=== PATIENT | male | born 1995 | race African-American/Black ===

== ENCOUNTER 2024-10-20 10:47 | Emergency (ER) | payer SELFPAY ==
--- NOTE | ~2024-10-20 | XR_ITS ---
EXAM/PROCEDURE: XR chest 2V - 10/20/2024 11:00 CDT HISTORY: 29 years old Male with cough,COARSE,WHEEZING,SOB TECHNIQUE: Two view(s) of the chest. COMPARISON: None available. FINDINGS: LUNGS/ PLEURA: No focal consolidation. Mild perihilar bronchial wall thickening. HEART/ MEDIASTINUM: Heart appears normal in size. BONES: No acute osseous abnormality. OTHER: Visualized upper abdomen is unremarkable. IMPRESSION: No focal consolidation. Mild perihilar bronchial wall thickening, findings suggestive of respiratory bronchiolitis. Reviewed, dictated and finalized at location A. IMPRESSION: No focal consolidation. Mild perihilar bronchial wall thickening, findings sugg estive of respiratory bronchiolitis.
--- OUTSIDE RECORDS SUMMARY | 2024-10-20 10:53 | XMS_ITS | Clinical Summary ---
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 Name Role Phone Provider, None Primary Care Provider Unavailabl e Allergies Active Allergy Reactions Criticality Noted Date Comments Ibuprofen Other (see Comments) 04/13/2022 Medications No known medications Social History Tobacco Use Types Packs/Day Years Used Date Smoking Tobacco: Never Smokeless Tobacco: Never Alcohol Use Standard Drinks/Week Comments Never 0 (1 standard drink = 0.6 oz pur e alcohol) Sex and Gender Information Value Date Recorded Sex Assigned at Not on file Legal Sex Male 10:32 PM CDT Gender Identity Not on file Sexual Orientation Not on file Last Filed Vital Signs Vital Sign Reading Time Taken Comments Blood Pressure 140/83 04/13/2022 10:41 PM CDT Pulse 79 04/13/2022 10:41 PM CDT Temperature 36.3 C (97.4 F) 04/13/2022 10:41 PM CDT Respiratory Rate 15 04/13/2022 10:41 PM CDT Oxygen Saturation 99% 04/13/2022 10:41 PM CDT Inhaled Oxygen Concentration - - Weight 99.8 kg (220 lb) 04/13/2022 10:41 PM CDT Height 177.8 cm (5' 10 ) 04/13/2022 10:41 PM CDT Body Mass Index 31.57 04/13/2022 10:41 PM CDT Plan of Treatment Health Maintenance Due Date Last Done Comments Hepatitis C Virus (HCV) Screening 1996 TdaP Immunization 1996 Hepatitis B Immunization (1 of 3 - 19+ 3-dose series) 01/08/2015 Influenza Immunization (#1) 2024 SARS-COV-2 Immunization ( season) 2024 03/24/2021 Respiratory Syncytial Virus (RSV) Immunization (Adult) (1 - 1-dose 75+ series) 01/08/2071 Meningococcal Immunization (ACWY) Aged Out No longer eligible based on patient's age to complete this topic Pneumococcal Immunization Combined Aged Out No longer eligible based on patient's age to complete this topic Rotavirus Immunization Aged Out No lo nger eligible based on patient's age to complete this topic Insurance MEDICAID [place] Care Teams Stem Roller Operator Relationship Specialty Start Date End Date Provider, None [place] PCP - General 04/13/22
[2024-10-20 10:55] VITALS: BP 161/98; PULSE 60; RESP 20; TEMP 36.9; O2SAT 97
[2024-10-20 11:05] VITALS: BP 149/92
--- NOTE | 2024-10-20 11:29 | ED.GENADULT ---
HPI - General Adult General Chief complaint: Upper Respiratory Infection Stated complaint: Cough/Chest Congestion Source: patient Mode of arrival: ambulatory Limitations: no limitations History of Present Illness HPI narrative: Pt presents for evaluation of respiratory symptoms for the past week. Symptoms include cough, shortness of breath, and wheezing. He also has experienced a sore throat and diarrhea. Denies otalgia, nausea and vomiting. He was exposed to influenza about a month ago. He has tried taking Mucinex and Delsym for his symptoms. He has a history of pneumonia and states his current symptoms are similar to those he experienced with pneumonia. He does vape. Related Data Home Medications ?Medication ?Instructions ?Recorded ?Confirmed ?Last Taken ?Type No Home Medications 10/20/24 10/20/24 Unknown History Allergies Allergy/AdvReac Type Severity Reaction Status Date / Time ibuprofen (From Motrin) Allergy Intermediate Hives Verified 10/20/24 11:10 Review of Systems Review of Systems: CONSTITUTIONAL: Denies fever, chills, or sweats. EYES: Denies visual changes, redness, or discharge. ENT: Reports sore throat. Denies rhinorrhea, congestion, or otalgia. CARDIOVASCULAR: Denies chest pain, palpitations, or edema. RESPIRATORY: Reports cough, shortness of breath and wheezing GASTROINTESTINAL: Reports diarrhea. Denies abdominal pain, nausea, vomiting GENITOURINARY: Denies dysuria or hematuria. SKIN: Denies rash or itching. MUSCULOSKELETAL: Denies back pain, joint pain, or myalgia. NEUROLOGIC: Denies headache, numbness, dizziness, or weakness. PSYCHIATRIC: Denies anxiety or depression. [facility] Past Medical History Medical History No pertinent past medical history Surgical History Surgical History No pertinent past surgical history Family History Family History Mother Family history non-contributory Social History Social History (Updated 10/20/24 @ 12:19 by IMMANUEL Goldberg, ANAND) Smoking status: Current every day smoker Tobacco type: e-cigarettes/vaping Substance use: never Gender identity (if verbalized by the patient): Male Sexual Orientation (if Verbalized by the Patient): Straight or Heterosexual Spiritual care concerns: No Exam Narrative: GENERAL: Well-appearing, well-nourished, and in no acute distress. HEAD: Normocephalic, atraumatic. EYES: PERRLA and EOMI. ENT: Nares clear, no rhinorrhea or epistaxis. Mucous membranes moist. Oropharynx without tonsillar hypertrophy exudate or other lesions. Bilateral TMs pearly shanks nonbulging NECK: Supple. No adenopathy or masses. No carotid bruits or JVD CHEST: Wheezing and rales noted in lung richard bilaterally. Cough present on exam HEART: Regular rate and rhythm. No murmur heard. Normal peripheral pulses. ABDOMEN: Soft, nontender, nondistended, normal active bowel sounds. EXTREMITIES: Normal range of motion. No edema. SKIN: Warm, dry, no rash. NEURO: No focal deficits. Alert and oriented x3. PSYCH: Normal mood and affect. Course Course Emergency Course: This is a 29 yr old male who presented for evaluation of sick symptoms. COVID, flu, strep were all negative. Chest x-ray consistent with bronchiolitis. He was given a nebulizer treatment and steroids. His symptoms improved. He indicates he feels well enough to go home. Will discharge with prednisone and albuterol. Follow-up with primary provider. Go to the ER for worsening symptoms. Patient in agreement with plan of care. Level of Care: Express Care Visit Vital Signs Vital signs: Vital Signs Temperature 36.9 C 10/20/24 10:55 Pulse Rate 60 10/20/24 10:55 Respiratory Rate 20 10/20/24 10:55 Blood Pressure 161/98 H 10/20/24 10:55 Pulse Oximetry 97 10/20/24 10:55 Oxygen Delivery Room Air 10/20/24 10:55 Temperature 36.9 C 10/20/24 10:55 Pulse Rate 60 10/20/24 10:55 Respiratory Rate 20 10/20/24 10:55 Blood Pressure 149/92 H 10/20/24 11:05 Pulse Oximetry 97 10/20/24 10:55 Oxygen Delivery Room Air 10/20/24 10:55 Medical Decision Making Vital Signs Vital Signs: Vital Signs Temperature 36.9 C 10/20/24 10:55 Pulse Rate 60 10/20/24 10:55 Respiratory Rate 20 10/20/24 10:55 Blood Pressure 161/98 H 10/20/24 10:55 Pulse Oximetry 97 10/20/24 10:55 Oxygen Delivery Room Air 10/20/24 10:55 Temperature 36.9 C 10/20/24 10:55 Pulse Rate 60 10/20/24 10:55 Respiratory Rate 20 10/20/24 10:55 Blood Pressure 149/92 H 10/20/24 11:05 Pulse Oximetry 97 10/20/24 10:55 Oxygen Delivery Room Air 10/20/24 10:55 Lab Data Labs: Lab Results 10/20/24 10/20/24 Range/Units 11:40 11:45 POC Influenza A Ag Negative (Negative) POC Influenza B Ag Negative (Negative) POC SARS CoV-2 Ag Negative (Negative) POC Grp A Strep Screen Negative (Negative) Imaging Data Radiologist's impression: Ordering Physician: George Blake APRN Date of Service: 10/20/24 Procedure(s): XR chest 2V Accession Number(s): [id number] cc: George Blake APRN; [employer] OPERATOR PHYSICIAN~ EXAM/PROCEDURE: XR chest 2V - 10/20/2024 11:00 CDT HISTORY: 29 years old Male with cough,COARSE,WHEEZING,SOB TECHNIQUE: Two view(s) of the chest. COMPARISON: None available. FINDINGS: LUNGS/ PLEURA: No focal consolidation. Mild perihilar bronchial wall thickening. HEART/ MEDIASTINUM: Heart appears normal in size. BONES: No acute osseous abnormality. OTHER: Visualized upper abdomen is unremarkable. IMPRESSION: No focal consolidation. Mild perihilar bronchial wall thickening, findings suggestive of respiratory bronchiolitis. Discharge Plan Discharge Clinical Impression: Viral upper respiratory infection Patient Disposition: Home Condition: Stable Instructions: Antibiotic Form, Upper Respiratory Infection (ED), Viral Syndrome (ED) Patient Language: Rw[place]an Prescriptions: New prednisone 50 mg tablet 50 mg PO DAILY Qty: 5 0RF Proair Digihaler 90 mcg/actuation aero powdr breath act w/sensor 2 inh inhalation Q6H Qty: 1 0RF No Action No Home Medications Follow-up/Referrals: Ephraim López MD [Physician] - Time of Disposition: 11:52
[2024-10-20] MEDS: IPRATROPIUM 0.5 MG/ALBUTEROL SULFATE 2.5 MG AMPUL.NEB 3 ML INHALATION (11:34)
[2024-10-20] MEDS: methylPREDNISolone SOD SUCC 125 MG VIAL IM (11:34)
[2024-10-20 11:42] LABS: EDSTREPNEGPOS1 Negative (Negative)
[2024-10-20 11:47] LABS: EDCOVIDSCREEN Negative (Negative); EDINFLUASCREEN Negative (Negative); EDINFLUBSCREEN Negative (Negative)
[2024-10-20 11:55] VITALS: BP 153/93
== END 2024-10-20 11:55 | disposition home or self-care (01) ==
PROVIDERS: Emergency Provider Nurse Practitioner
DX: J06.9 Acute upper respiratory infection, unspecified (principal); B97.89 Other viral agents as the cause of diseases classified elsewhere; F17.290 Nicotine dependence, other tobacco product, uncomplicated; Z20.822 Contact with and (suspected) exposure to COVID-19
CPT/HCPCS: 71046; 87081; 87426; 87804; 87880; 94640; 96372; 99213; G0463; J2919